=== PATIENT | female | born 1995 | race Caucasian/White ===

== ENCOUNTER 2018-01-16 06:21 | Emergency (ER) | payer OTHER ==
[2018-01-16 06:27] VITALS: BP 125/76; PULSE 89; RESP 22; TEMP 96.2; O2SAT 99
--- NOTE | 2018-01-16 06:43 | C.PDOC ---
History Of Present Illness 22 year old female with PMHx of seasonal allergies presents to the ED for evaluation of intermittent episodes of nose bleeding for the past 2 weeks. Patient states due to her allergies she has intermittent congestion as well. There is no active bleeding on arrival to the ED. Patient denies injury, fall, trauma, dizziness, headache, nausea, vomiting. Chief Complaint (Nursing): ENT Problem History Per: Patient History/Exam Limitations: None Onset/Duration Of Symptoms: Intermittent Episodes Current Symptoms Are (Timing): Gone Symptoms Have Been: Episodic Anticoagulant/Antiplatlet Use?: No Recent Aspirin Use: No Past Medical History Reviewed: Historical Data, Nursing Documentation, Vital Signs Vital Signs: Last Vital Signs Temp 96.2 F L 01/16/18 06:34 Pulse 89 01/16/18 06:34 Resp 22 01/16/18 06:34 BP 125/76 01/16/18 06:34 Pulse Ox 99 01/16/18 06:45 - Medical History PMH: No Chronic Diseases Surgical History: No Surg Hx Family History: States: Unknown Family Hx - Social History Hx Tobacco Use: No Hx Alcohol Use: No Hx Substance Use: No - Immunization History Hx Tetanus Toxoid Vaccination: No Hx Influenza Vaccination: No Hx Pneumococcal Vaccination: No Review Of Systems Constitutional: Negative for: Fever, Chills Eyes: Negative for: Vision Change ENT: Positive for: Nose Discharge, Nose Congestion. Negative for: Nose Pain Respiratory: Negative for: Cough, Shortness of Breath Gastrointestinal: Negative for: Nausea, Vomiting Neurological: Negative for: Headache, Dizziness Physical Exam - Physical Exam Appears: Non-toxic, No Acute Distress Skin: Normal Color, Warm, Dry Head: Atraumatic, Normacephalic Eye(s): bilateral: Normal Inspection Ear(s): Bilateral: Normal Nose: No Tenderness, No Septal Hematoma, Other (no dry blood seen, no swelling, no ecchymosis) Oral Mucosa: Moist Throat: Normal, No Erythema, No Exudate Neurological/Psych: Oriented x3, Normal Speech Gait: Steady ED Course And Treatment O2 Sat by Pulse Oximetry: 99 (ON RA) Pulse Ox Interpretation: Normal Progress Note: On reassessment, patient is resting comfortably, and is in no acute distress. Patient was instructed to follow up with physician/clinic in 1- 2 days for further evaluation. Disposition - Disposition Referrals: Lencho Balderas MD [Staff Provider] - Disposition Time: 06:48 Condition: STABLE Additional Instructions: May use nasal sprays/ zyrtec Keep nose moisturize follow up with PMD or ENT doctor Return to ER if worse Prescriptions: Cetirizine HCl [Zyrtec] 10 mg PO DAILY #14 capsule Oxymetazoline 0.05% [Oxymetazoline HCl 30 Ml] 1 ml NS BID #1 bottle Instructions: Nosebleeds (DC) Forms: [facility] (Portuguese) - Clinical Impression Clinical Impression: Epistaxis - PA / DIRECTOR DERMATOLOGY / Resident Statement MD/DO has reviewed & agrees with the documentation as recorded. - Scribe Statement The provider has reviewed the documentation as recorded by the Scribe Terrence Ya All medical record entries made by the Scribe were at my direction and personally dictated by me. I have reviewed the chart and agree that the record accurately reflects my personal performance of the history, physical exam, medical decision making, and the department course for this patient. I have also personally directed, reviewed, and agree with the discharge instructions and disposition.
== END 2018-01-16 06:56 | disposition home or self-care (01) ==
LOC: C.ER 06:21
DX: R04.0 Epistaxis (principal)